=== PATIENT | male | born 1985 | race Caucasian/White ===

== ENCOUNTER 2017-06-10 19:34 | Emergency (ER) | payer OTHER ==
[~2017-06-10] VITALS: Ht 185.4 cm; Wt 181.4 kg
--- NOTE | 2017-06-10 19:52 | ED Lower Extremity ---
General Chief Complaint: Lower Extremity Stated Complaint: LT FOOT INJ Source: patient Exam Limitations: no limitations History of Present Illness Time seen by provider: 19:50 Initial Comments This very large gentleman presents to ER with left foot pain dorsally that began at about 530 or 6 p.m. this evening when he jumped into a shallow swimming pool about 3 feet deep. He does not recall any inversion or eversion injury but states that he has significant pain with weightbearing affecting the left foot and any palpation of the dorsal aspect of left foot. Onset: just prior to arrival Pain/Injury Location: left foot Modifying Factors: Worse With Movement Allergies and Home Medications Allergies Coded Allergies: Penicillins (Verified Allergy, Unknown, 06/10/17) Home Medications No Active Prescriptions or Reported Meds Constitutional: see HPI EENTM: see HPI Respiratory: no symptoms reported Cardiovascular: no symptoms reported Genitourinary: no symptoms reported Musculoskeletal: see HPI Skin: no symptoms reported Psychiatric/Neurological: No Symptoms Reported Past [facility] Hx Patient Social History Alcohol Use: Denies Use Recreational Drug Use: No Smoking Status: Never a Smoker Recent Foreign Travel: No Contact w/Someone Who Travel: No Recent Hopitalizations: No Physical Exam Vital Signs Vital Sign - Last 12Hours 06/10/17 19:39 Temp 98.6 Pulse 117 Resp 24 B/P (MAP) 174/117 Pulse Ox 97 O2 Delivery Room Air Capillary Refill : General Appearance: WD/WN, no apparent distress, other (very large gentleman, over 6 foot tall in over 350 pounds but will not give us his exact weight due to embarrassment. No distress. Very pleasant) HEENT: PERRL/EOMI, normal ENT inspection Neck: non-tender, full range of motion Respiratory: no respiratory distress, no accessory muscle use Gastrointestinal: normal bowel sounds, non tender Hips: bilateral hip non-tender, bilateral hip normal inspection, bilateral hip normal range of motion Legs: bilateral leg non-tender, bilateral leg normal inspection, bilateral leg normal range of motion Knees: bilateral knee non-tender, bilateral knee normal inspection, bilateral knee normal range of motion Ankles: bilateral ankle non-tender, bilateral ankle normal inspection, bilateral ankle normal range of motion Feet: left foot pain, left foot soft tissue tenderness, left foot swelling, left foot other (there is swelling to the dorsal aspect left foot with tenderness to even light palpation.) Neurologic/Psychiatric: alert, normal mood/affect, oriented x 3 Skin: normal color, warm/dry Progress/Results/Core Measures Results/Orders My Orders Orders - ZOIE SESAY APRN Ankle, Left, 3 Views (06/10/17 19:45) Foot, Left, 3 Views (06/10/17 19:45) Vital Signs/I&O Vital Sign - Last 12Hours 06/10/17 19:39 Temp 98.6 Pulse 117 Resp 24 B/P (MAP) 174/117 Pulse Ox 97 O2 Delivery Room Air Departure Communication Progress Notes The patient's weight, crutches would be ill advised. I'll place him in a walking boot. Impression Impression: Primary Impression: Lisfranc's sprain Disposition: HOME, SELF-CARE Condition: Stable Departure-Patient Inst. Decision time for Depature: 20:12 Referrals: CHARLEE HUDDLESTON MD, DAVID G DPM GRANTHAM, JONATHAN MD NO,LOCAL PHYSICIAN (PCP) Primary Care Physician ABDIFATAH MONTEIRO MD, ROBERT F DO TOMA, PAUL W DO ZAFUTA, MICHAEL P MD Patient Instructions: NO INSTRUCTIONS GIVEN Add. Discharge Instructions: 1. Pain medication as directed 2. Call the orthopedic surgeons on Tuesday to make an appointment to be seen for follow-up All discharge instructions reviewed with patient and/or family. Voiced understanding. Scripts No Active Prescriptions or Reported Meds ZOIE SESAY APRN Jun 10, 2017 19:52
[2017-06-10] MEDS ORDERED: RX-HYDROCODONE/APAP 5/325 MG #4 TAB PK PO PRN (21:00)
[2017-06-10 21:13] VITALS: BP 174/117
--- NOTE | 2017-06-13 12:10 | RADIOLOGY REPORT ---
Patient name: AZEB KELLEY ACC: [id number] : 1985 Age:31 years Class: Emergency Gender: Male ORD DR: ZOIE SESAY ATT DR: ZOIE SESAY Phone: Procedure: ANKLE, LEFT, 3 VIEWS, FOOT, LEFT, 3 VIEWS ORD Date: 06/10/2017 8:11 PM Reason for Study: CORRECTED Final Report EXAM: ANKLE, LEFT, 3 VIEWS, FOOT, LEFT, 3 VIEWS INDICATION: Pain in left foot. Trauma. COMPARISON: None. FINDINGS: No fracture or malalignment. There is soft tissue prominence of the dorsum of the left foot. No ankle joint effusion. Ankle mortise is intact. No radiopaque foreign bodies. IMPRESSION: Soft tissue prominence along the dorsum of the left foot. No acute osseous findings. Dictated by: Created by: Max Mcguire on 06/10/2017 8:12 PM Transcribed by: JIMI 06/10/2017 8:20 PM [facility]
--- NOTE | 2017-06-13 12:12 | RADIOLOGY REPORT ---
Patient name: AZEB KELLEY ACC: [id number] : 1985 Age:31 years Class: Emergency Gender: Male ORD DR: ZOIE SESAY ATT DR: ZOIE SESAY Procedure: FOOT, LEFT, 3 VIEWS ORD Date: 06/10/2017 8:11 PM Reason for Study: CORRECTED Final Report EXAM: ANKLE, LEFT, 3 VIEWS, FOOT, LEFT, 3 VIEWS INDICATION: Pain in left foot. Trauma. COMPARISON: None. FINDINGS: No fracture or malalignment. There is soft tissue prominence of the dorsum of the left foot. No ankle joint effusion. Ankle mortise is intact. No radiopaque foreign bodies. IMPRESSION: Soft tissue prominence along the dorsum of the left foot. No acute osseous findings. Dictated by: Created by: Max Mcguire on 06/10/2017 8:12 PM Transcribed by: JIMI 06/10/2017 8:20 PM [facility]
== END 2017-06-10 21:13 | disposition home or self-care (01) ==
LOC: ER 19:39
DX: Z04.3 Encounter for examination and observation following other accident (principal)
CPT/HCPCS: 73610; 73630; 99283